=== PATIENT | male | born 1970 | race Caucasian/White ===

== ENCOUNTER 2017-01-23 13:04 | Emergency (ER) | payer MEDICAID ==
[~2017-01-23] VITALS: Ht 175.3 cm; Wt 81.6 kg
[2017-01-23 13:34] VITALS: BP 151/93
[2017-01-23] MEDS ORDERED: ROXICODONE5 M1 PO (13:36)
--- NOTE | 2017-01-23 16:55 | NUR ---
PATIENT PRESENTS TO ED WITH LOWER PAIN PAIN, LEFT HIP PAIN X2 YEARS . DENIES N/V/D; SKIN IS PINK/WARM/DRY; AAOX4 WITH EVEN AND STEADY GAIT; LUNGS CLEAR BL; HR EVEN AND REGULAR; PT DENIES ANY FEVER, CP, SOB, OR COUGH AT THIS TIME; PATIENT STATES PAIN OF 0/10 AT THIS TIME; VSS; PATIENT POSITIONED FOR COMFORT; HOB ELEVATED; BEDRAILS UP X2; BED DOWN.
[2017-01-23] MEDS ORDERED: HYDROcodone/APAP 5/325 MG 1 TAB TAB PO ONE (17:00)
[2017-01-23 17:14] VITALS: BP 148/93
== END 2017-01-23 17:11 | disposition home or self-care (01) ==
LOC: MED 13:04
DX: M25.552 Pain in left hip (principal); M54.5 Low back pain